=== PATIENT | male | born 1955 | race Caucasian/White ===

== ENCOUNTER → 2016-05-24 | Outpatient (CLI) | payer BC, MEDICARE ==
[~2016-05-24] MED LIST: ELIQUIS2.5 MG PO; ISOSORBIDE DINI30 MG PO; LIPITOR TAB 2020 MG PO; METFORMIN HCL500 MG PO; METOPROLOL SUCC50 MG PO; OLANZAPINE20 MG PO; VENLAFAXINE HCL75 MG PO
== END ==
LOC: KOH-I 05-17 09:30
DX: I63.9 Cerebral infarction, unspecified (principal)
CPT/HCPCS: 70553; A9577

== ENCOUNTER → 2016-08-23 | Outpatient (CLI) | payer BC, MEDICARE | LOC: NM 08:43 → ECHO 11:00 | DX: I20.8 Other forms of angina pectoris (principal); R06.02 Shortness of breath; I10 Essential (primary) hypertension; E78.5 Hyperlipidemia, unspecified | CPT/HCPCS: ECHO; 78452; 93017; 93306; A9502; J2785 ==